=== PATIENT | male | born 1955 | race Caucasian/White ===

== ENCOUNTER 2018-07-13 17:36 | Emergency (ER) | payer OTHER, SELFPAY ==
[2018-07-13] MEDS ORDERED: Proparacaine 0.5% Opth 15 ML BOT ONE (18:03)
[2018-07-13] MEDS ORDERED: Fluorescein Opthalmic Strip ONE (18:03)
[2018-07-13] MEDS ORDERED: Adacel (T-DAP) 0.5 ML SYRINGE ONE (18:18)
== END 2018-07-13 18:30 | disposition home or self-care (01) ==
LOC: ERS 17:36
DX: S05.01XA Injury of conjunctiva and corneal abrasion without foreign body, right eye, initial encounter (principal); I10 Essential (primary) hypertension; E11.9 Type 2 diabetes mellitus without complications; Z79.899 Other long term (current) drug therapy; X58.XXXA Exposure to other specified factors, initial encounter
CPT/HCPCS: 90471; 90715

== ENCOUNTER 2018-11-10 14:08 | Observation (INO) | payer OTHER, SELFPAY ==
[2018-11-10 14:59] LABS: #Lymphocytes 1.1 thou/uL (1.20-3.40); #Monocytes 0.5 thou/uL (0.11-0.59); #Neutrophils 8.9 thou/uL (1.40-6.50); %Basophils 0.2 % (0.0-1.0); %Eosinophils 0.4 % (0.0-10.0); %Lymphocytes 10.7 % (21.0-51.0); %Monocytes 4.8 % (0.0-10.0); %Neutrophils 83.8 % (42.0-75.0); Hemoglobin 13.9 g/dL (14.0-18.0); Mean Corpuscular HGB CONC 35.2 g/dL (32.0-36.0); Mean Corpuscular Hemoglobin 32.1 pg (27.0-31.0); Mean Corpuscular Volume 91.2 fL (78.0-98.0); Mean Platelet Volume 6.3 fL (7.4-10.4); Platelet Count 230 thou/uL (130-400); RBC Distribution Width 11.2 % (11.5-14.5); Red Blood Cell (RBC) Count 4.34 mill/uL (4.70-6.10); White Blood Cell (WBC) Count 10.6 thou/uL (4.8-10.8)
[2018-11-10 15:19] LABS: ALT (SGPT) 25 U/L (8-55); AST (SGOT) 29 U/L (5-34); Albumin 4.7 g/dL (3.4-4.8); Alkaline Phosphatase 80 U/L (40-150); Anion Gap 13 mmol/L (10-20); BUN (Urea Nitrogen) 20 mg/dL (8.4-25.7); Bilirubin, Total 0.7 mg/dL (0.2-1.2); Calc. Creatinine Clearance 0 mL/min (70-130); Carbon Dioxide 26 mmol/L (23-31); Chloride 104 mmol/L (98-107); Estimated GFR-MDRD 42; Globulin 2.2 g/dL (2.4-3.5); Glucose 97 mg/dL (80-115); Potassium 4.4 mmol/L (3.5-5.1); Protein, Total 6.9 g/dL (5.8-8.1); Sodium 139 mmol/L (136-145)
--- NOTE | 2018-11-10 15:32 | RAD ---
PA CHEST: 11/10/18 HISTORY: Chest pain, shortness of breath. COMPARISON: 08/12/15 Lung desai appear clear. No infiltrate or vascular congestion. Heart and mediastinum unremarkable. IMPRESSION: No acute findings. POS: OFF
[2018-11-10 15:41] LABS: CKMB 3.1 ng/mL (0-6.6)
[2018-11-10] MEDS ORDERED: Aspirin 325 MG TAB ONE (16:17)
[2018-11-10] MEDS ORDERED: HumaLOG 300 UNITS/3 ML VIAL SC PRN ×2 (18:02→18:14)
[2018-11-10] MEDS ORDERED: Nitroglycerin 0.4 MG TAB (25 Tab Bottle) SL PRN (18:02)
[2018-11-10 18:06] VITALS: BMI 26.2
[2018-11-10] MEDS ORDERED: Dextrose 5% in Water 1,000 ML IV PRN (18:14)
[2018-11-10] MEDS ORDERED: Dextrose 50% Abboject 50 ML SYRINGE IVP PRN (18:14)
[2018-11-10 18:23] LABS: Troponin I 0.125 ng/mL (< 0.028)
[2018-11-10] MEDS ORDERED: Atorvastatin Calcium 10 MG TAB PO SCH (21:00)
[2018-11-10 21:22] LABS: Troponin I 0.105 ng/mL (< 0.028)
--- NOTE | 2018-11-11 00:32 | HP ---
PRIMARY CARE PHYSICIAN: Farhan Santamaria MD CHIEF COMPLAINT: Chest pain, shortness of breath. HISTORY OF PRESENT ILLNESS: This is a 62-year-old gentleman with a history of type 2 diabetes, hypertension, hyperlipidemia, presents to the emergency department today with 2-3 weeks of on and off right-sided chest pain. Past 2-3 days, he has had left shoulder blade pain. He presented to Dr. Santamaria's office yesterday who noted some EKG changes and recommended a followup stress test this morning. He was out helping a neighbor repair roof when he developed shortness of breath. He denied having chest pain at that time. His dyspnea persisted for about 15-20 minutes. By the time he returned back to his house, he was still short of breath. His states that his blood pressure was low and his heart rate was elevated, presented to the emergency department for evaluation at that time. In the emergency department, he did have indeterminate cardiac enzymes. He had no EKG changes, but due to the symptoms and progression of them today, he is now being admitted for further evaluation and treatment. PAST MEDICAL HISTORY: Hypertension, hyperlipidemia, type 2 diabetes. MEDICATIONS: Include; 1. Losartan 100 mg daily. 2. Simvastatin 20 mg daily. 3. Pantoprazole 40 mg daily. 4. Aspirin 81 mg daily. 5. Metformin 500 mg b.i.d. p.r.n. He states that he does not take it regularly. PAST SURGICAL HISTORY: None. SOCIAL HISTORY: He is . He has children. He lives at home. 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 He denies smoking. Denies alcohol use. Denies any other drug use. FAMILY HISTORY: Father at 87 from a motor vehicle accident. Mother at 42 secondary to bone cancer. Does have a history of 2 sisters with type 2 diabetes. No other heart disease in the family. REVIEW OF SYSTEMS: As per the history of present illness. He denies any recent illness, fevers, or chills. HEENT: He denies headaches, visual or hearing changes. Denies any recent upper respiratory infection. CARDIAC: As per the history of present illness. He denies palpitations, but does have episodes of shortness of breath that has been going on for several years, occasional episodes of chest pain for the past 2-3 weeks. PULMONARY: No history of asthma. He denies cough, or hemoptysis. GI: Denies nausea, vomiting, abdominal pain, melena, or hematochezia. : Denies dysuria or hematuria. NEUROLOGIC: No weakness, seizures, or syncope. PHYSICAL EXAMINATION: VITAL SIGNS: Temperature 97.7, pulse 58, respirations 20, blood pressure 136/81, pulse ox is 100% on room air. GENERAL: He is awake and alert. No acute distress, no conversational dyspnea. NECK: Supple. No bruits. HEART: Regular rate and rhythm. LUNGS: Clear bilaterally. No wheeze, rales, or rhonchi. ABDOMEN: Soft, nontender, and nondistended. EXTREMITIES: With no edema. LABORATORY DATA: Sodium 139, potassium 4.4, chloride 104, CO2 of 26, BUN and creatinine 20 and 1.68 with a GFR of 42, serum glucose of 97. AST and ALT are normal. Troponin I, #1 is 0.076. BNP was normal at 36.6. White blood cell count 10,600, hemoglobin and hematocrit 13.9 and 39.6, and platelets of 230. Chest x-ray showed no active disease. EKG was normal sinus rhythm with no acute ST-T changes. ASSESSMENT AND PLAN: 1. This is a 62-year-old gentleman with risk factors including type 2 diabetes, hypertension, hyperlipidemia, now with persistent episodes of chest pain and persistent dyspnea. Agree with admission with rule out myocardial infarction protocol. We will arrange for a Cardiolite stress test in the morning. Cardiology to see as needed. 2. Hypertension. We will continue losartan at this time. 3. Type 2 diabetes. We will hold metformin in case he will need a catheterization in the next day or 2. We will continue to cover with insulin sliding scale. 4. Bradycardia. We will monitor on telemetry. Job ID: [id number]
[2018-11-11 06:55] LABS: Cardiac Risk 2.7 (Less than 4.5)
[2018-11-11] MEDS ORDERED: Aspirin 81 mg Enteric Coated Tablet PO SCH (09:00)
[2018-11-11] MEDS ORDERED: Losartan 25 MG TAB PO SCH (09:00)
--- NOTE | 2018-11-11 11:43 | NM ---
EXAM: Nuclear medicine cardiac SPECT with EF and wall motion: HISTORY: Chest pain Protocol: Exam was performed using treadmill stress protocol. The patient is injected with30.2 millicuries of technetium 99m sestamibi intravenously for stress tony ges. The patient is injected with10.4 millicuries of technetium 99 sestamibi intravenously for resting tony ges. Multiple SPECT images are performed in the short axis, vertical long axis, and horizontal long axis. FINDINGS: No scan evidence for infarct or ischemia. TID:1.06 LHR:0.31 EDV:79 mL EF:76% Wall motion:Within normal limits IMPRESSION: Unremarkable cardiac SPECT with EF and wall motion.
[2018-11-11 12:28] VITALS: BP 122/76; TEMP 97.7
--- NOTE | 2018-11-11 16:29 | DIS ---
DATE OF ADMISSION: 11/10/2018 DATE OF DISCHARGE: 11/11/2018 CHIEF COMPLAINT: Shortness of breath. PROCEDURES: Telemetry monitoring, echocardiogram, and nuclear stress test. HOSPITAL COURSE: This is a 62-year-old gentleman of Dr. Farhan Santamaria with a history of type 2 diabetes, hypertension, and hyperlipidemia, who presented with several weeks of atypical type chest pain and 2 to 3 days of shortness of breath. He states that the shortness of breath is only with severe exertion such as placing new fencing as well as working on his roof, walking does not get short of breath. In the emergency department, he had indeterminate troponins. He had a stress test, which was negative. Echocardiogram, which was otherwise normal. It was discussed with Dr. Mireles and he is to be discharged home with close followup with Cardiology. The patient has been asymptomatic since he has been here. DISCHARGE PHYSICAL EXAMINATION: VITAL SIGNS: Temperature 97.7, pulse is 62, respirations 20, blood pressure 122/76, and pulse ox is 97% on room air. GENERAL: He is awake and alert. No acute distress. Speech is clear. NECK: Supple. HEART: Regular rate and rhythm. LUNGS: Clear. No wheeze, rales, or rhonchi. ABDOMEN: Soft. EXTREMITIES: With no edema. DISCHARGE LABORATORY DATA: Accu-Cheks of 125, 99, 121. Cholesterol of 135, HDL of 50. Troponin I 0.076, 0.125, 0.105. Echocardiogram, which was read by Dr. Mireles revealed ejection fraction of 55% to 60%, suggestive of diastolic dysfunction. Mild mitral regurgitation, mild tricuspid regurgitation. Stress nuclear test showed no evidence of ischemia and normal wall motion. DISCHARGE MEDICATIONS: Include; 1. Aspirin 81 mg daily. 2. Lipitor 20 mg at bedtime. 3. Cozaar 100 mg daily. 4. Pantoprazole 40 mg daily. 5. Metformin back at his baseline, 500 mg b.i.d. FOLLOWUP INSTRUCTIONS: The patient to follow up with Dr. Santamaria in 1 week. Arrangements were made for outpatient followup with Dr. Mireles as well. Job ID: [id number]
== END 2018-11-11 15:47 | disposition home or self-care (01) ==
LOC: ERS 14:08 → 2SW 16:26
PROVIDERS: ADMIT Family Medicine; ATTEND Family Medicine
DX: R07.89 Other chest pain (principal); R06.02 Shortness of breath; I10 Essential (primary) hypertension; E78.5 Hyperlipidemia, unspecified; E11.9 Type 2 diabetes mellitus without complications; R00.1 Bradycardia, unspecified; I08.1 Rheumatic disorders of both mitral and tricuspid valves; Z79.82 Long term (current) use of aspirin; Z79.84 Long term (current) use of oral hypoglycemic drugs; Z79.899 Other long term (current) drug therapy
CPT/HCPCS: 36415; 36416; 71045; 78452; 80053; 80061; 82553; 83880; 84484; 85025; 93005; 93017; 93306; 94760; A9500; G0378

== ENCOUNTER 2024-10-22 12:46 | Outpatient (CLI) | payer OTHER | END 2024-10-22 12:47 | disposition home or self-care (01) | LOC: BICCT 12:46 | PROVIDERS: ATTEND Internal Medicine Cardiovascular Disease | DX: Z13.6 Encounter for screening for cardiovascular disorders (principal); I70.90 Unspecified atherosclerosis | CPT/HCPCS: 75571 ==